=== PATIENT | female | born 1960 | race American Indian/Alaskan Native ===

== ENCOUNTER 2020-02-11 14:36 | Emergency (ER) | payer SELFPAY ==
--- NOTE | 2020-02-11 14:50 | Event Note ---
ED Screening Note ED Screening Note: co r sided chest pain rad. to r arm described as tightness This initial assessment/diagnostic orders/clinical plan/treatment(s) is/are subject to change based on patients health status, clinical progression and re- assessment by fellow clinical providers in the ED. Further treatment and workup at subsequent clinical providers discretion. Patient/guardian urged not to elope from the ED as their condition may be serious if not clinically assessed and managed. Initial orders include: ekg ro acs
--- NOTE | 2020-02-11 15:50 | XRay Report ---
CHEST 2 VIEWS INDICATION / CLINICAL INFORMATION: chest pain. COMPARISON: None available. FINDINGS: SUPPORT DEVICES: None. HEART / MEDIASTINUM: No significant abnormality. LUNGS / PLEURA: No significant pulmonary or pleural abnormality. No pneumothorax. ADDITIONAL FINDINGS: No significant additional findings. IMPRESSION: 1. No acute findings. Signer Name: Osvaldo Deshpande MD Signed: 02/11/2020 3:46 PM Workstation Name: [id number]
[2020-02-11 16:15] LABS: Basophils % (Auto) 0.5 % (0.0-1.8); Eosinophils % (Auto) 0.2 % (0.0-4.3); Hematocrit 39.7 % (30.3-42.9); Hemoglobin 13.2 gm/dl (10.1-14.3); Lymphocytes # (Auto) 2.3 K/mm3 (1.2-5.4); Lymphocytes % (Auto) 36.4 % (13.4-35.0); Mean Corpuscular HGB Conc 33 % (30-34); Mean Corpuscular Volume 99 fl (79-97); Monocytes # (Auto) 0.4 K/mm3 (0.0-0.8); Platelet Count 312 K/mm3 (140-440); Red Blood Count 4.03 M/mm3 (3.65-5.03)
[2020-02-11 16:31] LABS: Alanine Aminotransferase 31 units/L (7-56); Albumin 4.1 g/dL (3.9-5); BUN/Creatinine Ratio 13; Blood Urea Nitrogen 9 mg/dL (7-17); Calcium 10.3 mg/dL (8.4-10.2); Hemolysis Index 67
[2020-02-11] MEDS ORDERED: ACETAMINOPHEN 500 MG TAB PO ONE (19:55)
[2020-02-11] MEDS ORDERED: diphenhydrAMINE 25 MG CAP PO ONE (19:55)
[2020-02-11] MEDS ORDERED: predniSONE 20 MG TAB PO ONE (19:55)
[2020-02-11] MEDS ORDERED: METOCLOPRAMIDE 10 MG TAB PO ONE (19:56)
--- NOTE | 2020-02-11 20:37 | Emergency Department Report ---
ED Chest Pain HPI - General Chief Complaint: Chest Pain Stated Complaint: CHEST/RT ARM/PAIN Time Seen by Provider: 02/11/20 19:41 Source: patient Mode of arrival: Ambulatory Limitations: No Limitations - History of Present Illness Initial Comments: Ms. Modi is a 59-year-old -[place] female with a history of hypertension generally controlled with amlodipine p.o. daily. She presents for intermittent chest pain that lasted for approximately 6 hours radiating from substernal to right arm. She denies history of GERD. Pain is rated at 4/10. Pain is totally resolved at this time without intervention. She denies chest pain at this time there is no dizziness, lightheadedness, back pain, shortness of breath, or nausea and vomiting. She does endorse headache 4 /10 occipital described as squeezing. Patient has had similar headache and same in this location before. There is no photophobia or decreased vision. Patient states questionable adherence with BP medications.patient has PCP follow-up in 2 days. MD Complaint: chest pain, other Onset/Timin -: days(s) Onset: during rest Pain Location: substernal Pain Radiation: RUE Severity scale (0 -10): 5 Quality: sharp Consistency: intermittent Improves With: nothing Worsens With: nothing re: denies: nausea, vomting, diaphoresis, dyspnea, sense of impending doom Other Symptoms: denies: cough, fever, syncope (Vaccine trial), leg swelling Treatments Prior to Arrival: none - Related Data Previous Rx's Medication Instructions Recorded Last Taken Type HYDROcodone/ACETAMINOPHEN [[place] 1 each PO Q6H #20 tablet 11/23/14 Unknown Rx 7.5-325 mg TAB] Acetaminophen [Tylenol] 1,000 mg PO Q6HR PRN #30 tablet 02/11/20 Unknown Rx Metoclopramide [Reglan] 10 mg PO Q6H PRN #30 tablet 02/11/20 Unknown Rx diphenhydrAMINE [Benadryl CAP] 25 mg PO Q6HR PRN #30 capsule 02/11/20 Unknown Rx Allergies Allergy/AdvReac Type Severity Reaction Status Date / Time codeine Allergy Unknown Verified 11/22/14 18:27 Heart Score - HEART Score History: Slightly suspicious EKG: Normal Age: 45-65 Risk factors: 1-2 risk factors Troponin: < normal limit HEART Score: 2 ED Review of Systems ROS: Stated complaint: CHEST/RT ARM/PAIN Other details as noted in HPI Constitutional: denies: chills, fever Eyes: denies: eye pain, eye discharge, vision change ENT: denies: ear pain, throat pain Respiratory: denies: cough, shortness of breath, wheezing Cardiovascular: chest pain. denies: palpitations, dyspnea on exertion, orthopnea, edema, syncope Endocrine: no symptoms reported Gastrointestinal: denies: abdominal pain, nausea, diarrhea Genitourinary: denies: urgency, dysuria, discharge Musculoskeletal: denies: back pain, joint swelling, arthralgia Skin: denies: rash, lesions Neurological: denies: headache, weakness, paresthesias Psychiatric: denies: anxiety, depression Hematological/Lymphatic: denies: easy bleeding, easy bruising ED Past Medical Hx - Past Medical History Hx Hypertension: Yes - Surgical History Hx Cholecystectomy: Yes Additional Surgical History: hysterectomy - Social History Smoking Status: Never Smoker Substance Use Type: None - Medications Home Medications: Home Medications Medication Instructions Recorded Confirmed Last Taken Type HYDROcodone/ACETAMINOPHEN [[place] 1 each PO Q6H #20 tablet 11/23/14 Unknown Rx 7.5-325 mg TAB] Acetaminophen [Tylenol] 1,000 mg PO Q6HR PRN #30 tablet 02/11/20 Unknown Rx Metoclopramide [Reglan] 10 mg PO Q6H PRN #30 tablet 02/11/20 Unknown Rx diphenhydrAMINE [Benadryl CAP] 25 mg PO Q6HR PRN #30 capsule 02/11/20 Unknown Rx ED Physical Exam - General Limitations: No Limitations General appearance: alert, in no apparent distress - Head Head exam: Present: atraumatic, normocephalic - Eye Eye exam: Present: normal appearance, PERRL, EOMI - ENT ENT exam: Present: mucous membranes moist - Neck Neck exam: Present: normal inspection - Respiratory Respiratory exam: Present: normal lung sounds bilaterally. Absent: respiratory distress, wheezes, rales, rhonchi, stridor, chest wall tenderness - Cardiovascular Cardiovascular Exam: Present: regular rate, normal rhythm, normal heart sounds. Absent: systolic murmur, diastolic murmur, rubs, gallop - GI/Abdominal GI/Abdominal exam: Present: soft, normal bowel sounds. Absent: distended, tenderness, bruit, hernia - Rectal Rectal exam: Present: deferred - Extremities Exam Extremities exam: Present: normal inspection, full ROM, normal capillary refill. Absent: tenderness, pedal edema - Back Exam Back exam: Present: normal inspection, full ROM. Absent: tenderness, CVA tenderness (R), CVA tenderness (L), rash noted - Neurological Exam Neurological exam: Present: alert, oriented X3, CN II-XII intact, normal gait - Psychiatric Psychiatric exam: Present: normal affect, normal mood - Skin Skin exam: Present: warm, dry, intact, normal color. Absent: rash ED Course Vital Signs 02/11/20 18:19 Temperature 97.6 F Pulse Rate 107 H Respiratory 18 Rate Blood Pressure 134/83 O2 Sat by Pulse 100 Oximetry POLLY score - Polly Score Age > 65: (0) No Aspirin use within the Past 7 Days: (0) No 3 or more CAD Risk Factors: (0) No 2 or more Angina events in past 24 hrs: (0) No Known CAD with more than 50% Stenosis: (0) No Elevated Cardiac Markers: (0) No ST Deviation Greater than 0.5mm: (0) No POLLY Score: 0 ED Medical Decision Making - Lab Data Result diagrams: 02/11/20 15:13 02/11/20 15:13 Labs 02/11/20 02/11/20 02/11/20 15:13 15:13 15:13 WBC 6.2 RBC 4.03 Hgb 13.2 Hct 39.7 MCV 99 H MCH 33 H MCHC 33 RDW 15.0 Plt Count 312 Lymph % (Auto) 36.4 H Frio % (Auto) 7.0 Eos % (Auto) 0.2 Baso % (Auto) 0.5 Lymph # 2.3 Frio # 0.4 Eos # 0.0 Baso # 0.0 Seg Neutrophils % 55.9 Seg Neutrophils # 3.5 Sodium 142 Potassium 3.3 L Chloride 102.3 Carbon Dioxide 22 Anion Gap 21 BUN 9 Creatinine 0.7 Estimated GFR > 60 BUN/Creatinine Ratio 13 Glucose 102 H Calcium 10.3 H Total Bilirubin 0.50 AST 26 ALT 31 Alkaline Phosphatase 95 Troponin T < 0.010 Total Protein 8.2 Albumin 4.1 Albumin/Globulin Ratio 1.0 02/11/20 18:19 WBC RBC Hgb Hct MCV MCH MCHC RDW Plt Count Lymph % (Auto) Frio % (Auto) Eos % (Auto) Baso % (Auto) Lymph # Frio # Eos # Baso # Seg Neutrophils % Seg Neutrophils # Sodium Potassium Chloride Carbon Dioxide Anion Gap BUN Creatinine Estimated GFR BUN/Creatinine Ratio Glucose Calcium Total Bilirubin AST ALT Alkaline Phosphatase Troponin T < 0.010 Total Protein Albumin Albumin/Globulin Ratio - EKG Data EKG shows normal: sinus rhythm Rate: tachycardia - EKG Data When compared to previous EKG there are: other (no previous EKG on record ) Interpretation: LVH (Sinus Tachycardia LVH no ST Elevated PA interp by ed attending. ) - Radiology Data Radiology results: report reviewed, image reviewed Findings Reporting MD: Osvaldo Deshpande Dictation Time: February 11, 2020 14:46 Leasing Specialist: Not available Senior Director Finance Date: CHEST 2 VIEWS INDICATION / CLINICAL INFORMATION: chest pain. COMPARISON: None available. FINDINGS: SUPPORT DEVICES: None. HEART / MEDIASTINUM: No significant abnormality. LUNGS / PLEURA: No significant pulmonary or pleural abnormality. No pneumothorax. ADDITIONAL FINDINGS: No significant additional findings. IMPRESSION: 1. No acute findings. Signer Name: Osvaldo Deshpande MD Signed: 02/11/2020 2:46 PM Workstation Name: [id number] - Medical Decision Making cp is resolved, pt is tolerating po intake and hydration. ekg and cxr noted above, Heart score is 1, pt denies cp at this time. headache is resolved with medications given in ed, bp: 138/84 at this time, pt hr: 82, pt has rx'd amlodipine in her possession advised to take same as rx'd , pt will follow up with pcp in tomorrow. Will return to ed if symptoms worsen. Critical care attestation.: If time is entered above; I have spent that time in minutes in the direct care of this critically ill patient, excluding procedure time. ED Disposition Clinical Impression: Nonspecific chest pain Headache Qualifiers: Headache type: unspecified Headache chronicity pattern: unspecified pattern Intractability: not intractable Qualified Code(s): R51 - Headache Disposition: DC-01 TO HOME OR SELFCARE Is pt being admited?: No Does the pt Need Aspirin: No Condition: Stable Instructions: Chest Pain (ED), Acute Headache (ED) Prescriptions: Acetaminophen [Tylenol] 1,000 mg PO Q6HR PRN #30 tablet PRN Reason: Headache diphenhydrAMINE [Benadryl CAP] 25 mg PO Q6HR PRN #30 capsule PRN Reason: Headache Metoclopramide [Reglan] 10 mg PO Q6H PRN #30 tablet PRN Reason: Headache Referrals: JAQUI CONKLIN MD [Primary Care Provider] - 3-5 Days Forms: Work/School Release Form(ED) Time of Disposition: 20:51
[2020-02-11] MEDS ORDERED: POTASSIUM CHLORIDE ER 20 MEQ TAB PO ONE (20:52)
[2020-02-11 21:11] VITALS: BP 155/87
== END 2020-02-11 21:22 | disposition home or self-care (01) ==
LOC: ED 14:36
DX: R07.89 Other chest pain (principal); R05 Cough; R51 Headache
CPT/HCPCS: 36415; 71046; 80053; 84484; 85025; 93005; 99284; J7512

== ENCOUNTER 2021-08-29 16:58 | Emergency (ER) | payer SELFPAY ==
[2021-08-29] MEDS ORDERED: ACETAMINOPHEN 325 MG TAB PO ONE (17:09)
[2021-08-29] MEDS ORDERED: AZITHROMYCIN/NS 500 MG/250 ML 500 MG/250 ML BAG IV ONE (17:21)
[2021-08-29] MEDS ORDERED: SODIUM CHLORIDE 0.9% 500 ML 500 ML IV ONE (17:21)
--- NOTE | 2021-08-29 17:31 | Emergency Department Report ---
ED Fever HPI - General Chief Complaint: Fever Stated Complaint: HIGH FEVER Time Seen by Provider: 08/29/21 17:10 Source: patient, other Exam Limitations: no limitations, other - History of Present Illness Initial Comments: 60-year-old -Stateless female who came to the emergency room with chief complaint of fever. She reported checking her temperature at home today and it was 102.1. She reported that yesterday she woke up and she noted headache and sore throat, difficulty swallowing however this morning when she got up she was fatigued and feeling febrile. She reported dry cough. She reported a family contact at home tested positive for influenza and negative for COVID-19. Patient reported she had a recent Covid test and it was negative. She is fully vaccinated with Covid vaccination. Timing/Duration: other ED Review of Systems ROS: Stated complaint: HIGH FEVER Other details as noted in HPI Constitutional: fever. denies: chills ENT: throat pain Cardiovascular: denies: chest pain, palpitations, dyspnea on exertion, orthopnea Endocrine: denies: see HPI, excessive sweating, flushing, intolerance to cold Gastrointestinal: denies: nausea, vomiting, diarrhea Genitourinary: denies: urgency, dysuria, frequency, hematuria Musculoskeletal: denies: back pain, joint swelling, arthralgia Skin: denies: rash, lesions, change in color Neurological: denies: headache Psychiatric: denies: anxiety, depression ED Past Medical Hx - Past Medical History Hx Hypertension: Yes - Surgical History Hx Cholecystectomy: Yes Additional Surgical History: hysterectomy - Social History Smoking Status: Never Smoker Substance Use Type: None - Medications Home Medications: Home Medications Medication Instructions Recorded Confirmed Last Taken Type HYDROcodone/ACETAMINOPHEN [[place] 1 each PO Q6H #20 tablet 11/23/14 Unknown Rx 7.5-325 mg TAB] Acetaminophen [Acetaminophen TAB] 1,000 mg PO Q6HR PRN #30 tablet 02/11/20 Unknown Rx Metoclopramide [Reglan TAB] 10 mg PO Q6H PRN #30 tablet 02/11/20 Unknown Rx diphenhydrAMINE [Benadryl CAP] 25 mg PO Q6HR PRN #30 capsule 02/11/20 Unknown Rx ALPRAZolam [Xanax TAB] 0.5 mg PO BID PRN #8 tab 03/05/20 Unknown Rx Aspirin EC [Ecotrin] 325 mg PO QDAY #30 tablet. 03/05/20 Unknown Rx Famotidine [Pepcid] 20 mg PO BID #30 tablet 03/05/20 Unknown Rx Mag Hydrox/Aluminum Hyd/Simeth 20 ml PO QID PRN #1 bottle 03/05/20 Unknown Rx [Maalox Advanced Suspension] Cefuroxime Axetil [Ceftin] 500 mg PO Q12H 7 Days #14 ml 08/29/21 Unknown Rx cefUROXime [Ceftin] 250 mg PO Q12H 7 Days #14 tablet 08/29/21 Unknown Rx ED Physical Exam - General Limitations: No Limitations General appearance: alert, in no apparent distress - Head Head exam: Absent: atraumatic - Eye Eye exam: Present: normal appearance Pupils: Present: normal accommodation - ENT ENT exam: Present: normal exam, normal orophraynx, mucous membranes moist, TM's normal bilaterally. Absent: mucous membranes dry - Neck Neck exam: Present: normal inspection, full ROM - Respiratory Respiratory exam: Present: normal lung sounds bilaterally. Absent: wheezes, ra les, rhonchi, stridor - Cardiovascular Cardiovascular Exam: Present: tachycardia, normal heart sounds - GI/Abdominal GI/Abdominal exam: Present: soft. Absent: distended, tenderness, guarding, rebound - Rectal Rectal exam: Present: deferred - External exam: Present: normal external exam - Extremities Exam Extremities exam: Present: normal inspection - Back Exam Back exam: Present: normal inspection - Neurological Exam Neurological exam: Present: alert, oriented X3, CN II-XII intact - Psychiatric Psychiatric exam: Present: normal affect - Skin Skin exam: Present: warm ED Course Vital Signs 08/29/21 17:04 Temperature 100.3 F H Pulse Rate 118 H Respiratory 20 Rate Blood Pressure 141/78 O2 Sat by Pulse 98 Oximetry - Reevaluation(s) Reevaluation #1: 08/29/21 18:19 Patient has been updated on test result. Patient is feeling better with treatment so far in the ED. I have informed the patient that she has a urinary tract infection. She is awaiting a chest x-ray result is normal. Reevaluation #2: 08/29/21 18:53 I have reviewed patient lab results. Patient WBC is with normal limits. Chemistries notable for potassium 3.4, glucose 101, however nonactionable. Lactic acid, calcium WNL nonactionable. Urinalysis noted for large leukocyte esterase and 31 WBC consistent with urinary tract infection. Reevaluation #3: 08/29/21 19:06 I have updated the patient on all test results. I have discussed with him to return to the emergency room. Patient at time of discharge is awake alert oriented with no distress nontoxic appearing. She is stable for discharge. Patient repeat vitals are within normal limits and improved 08/29/21 19:07 ED Medical Decision Making - Lab Data Result diagrams: 08/29/21 17:41 08/29/21 17:41 - Radiology Data Radiology results: report reviewed I have reviewed the impression of the chest x-ray provided by the radiologist, no acute findings - Medical Decision Making 17:15 PM Initial vital signs at 5:04 PM Reviewed: Temperature 100.3, heart rate 118, respiratory 20, SPO2 98% with a BP 141/78 Did give the patient 2/4 SIRS criteria for sepsis. Septic work-up will be initiated. - Differential Diagnosis UTI, pneumonia, sepsis, electrolytes abnormality Critical care attestation.: If time is entered above; I have spent that time in minutes in the direct care of this critically ill patient, excluding procedure time. ED Disposition Clinical Impression: SIRS (systemic inflammatory response syndrome), Acute UTI Disposition: HOME / SELF CARE / HOMELESS Is pt being admited?: No Does the pt Need Aspirin: No Condition: Good Instructions: Antibiotic Medicine, Adult, Urinary Tract Infection, Adult, Urosepsis, Adult Additional Instructions: Take all medication as prescribed. Follow-up with primary care doctor next few days. If your symptoms worsen, worsening temperature, and you are taking ibuprofen or Tylenol to treat your fever, return to the emergency room sooner that Prescriptions: Cefuroxime Axetil [Ceftin] 500 mg PO Q12H 7 Days #14 ml cefUROXime [Ceftin] 250 mg PO Q12H 7 Days #14 tablet Referrals: HOLLY TEMPLE [Other] - 3-5 Days Time of Disposition: 19:06 Print Language: LIBERIAN
--- NOTE | 2021-08-29 17:31 | XRay Report ---
CHEST 2 VIEWS INDICATION / CLINICAL INFORMATION: fever, cough. COMPARISON: 03/04/2020 FINDINGS: SUPPORT DEVICES: None. HEART / MEDIASTINUM: No significant abnormality. LUNGS / PLEURA: No significant pulmonary or pleural abnormality. No pneumothorax. ADDITIONAL FINDINGS: No significant additional findings. IMPRESSION: 1. No acute findings. Signer Name: Lamberto Orosco MD Signed: 08/29/2021 5:26 PM Workstation Name: [id number]
[2021-08-29 17:48] LABS: Bacteria,Urine 2+ /HPF (Negative); Bilirubin,Urine NEG (Negative); Blood,Urine MOD (Negative); Color,Urine Yellow (Yellow); Mucus,Urine FEW /HPF; Protein,Urine <15 mg/dL mg/dL (Negative); RBC,Urine < 1.0 /HPF (0.0-6.0); Urobilinogen,Urine < 2.0 mg/dL (<2.0)
[2021-08-29 18:03] LABS: Basophils % (Auto) 0.4 % (0.0-1.8); Eosinophils % (Auto) 0.7 % (0.0-4.3); Hematocrit 35.9 % (30.3-42.9); Hemoglobin 11.5 gm/dl (10.1-14.3); Lymphocytes # (Auto) 1.1 K/mm3 (1.2-5.4); Lymphocytes % (Auto) 22.3 % (13.4-35.0); Mean Corpuscular HGB Conc 32 % (30-34); Mean Corpuscular Volume 97 fl (79-97); Monocytes # (Auto) 0.6 K/mm3 (0.0-0.8); Monocytes % (Auto) 12.6 % (0.0-7.3); Platelet Count 253 K/mm3 (140-440); Red Cell Distribution Width 14.4 % (13.2-15.2)
[2021-08-29 18:18] LABS: Alanine Aminotransferase 17 units/L (7-56); Albumin 4.1 g/dL (3.9-5); BUN/Creatinine Ratio 11; Blood Urea Nitrogen 9 mg/dL (7-17); Calcium 9.7 mg/dL (8.4-10.2); Hemolysis Index 5
[2021-08-29 19:01] VITALS: BP 125/76
== END 2021-08-29 20:10 | disposition home or self-care (01) ==
LOC: ED 16:58
DX: N39.0 Urinary tract infection, site not specified (principal); R65.10 Systemic inflammatory response syndrome (SIRS) of non-infectious origin without acute organ dysfunction; I10 Essential (primary) hypertension
CPT/HCPCS: 36415; 71046; 80053; 81001; 82140; 85025; 87040; 87086; 96365; 99284; J0456; J7040